=== PATIENT | male | born 1980 | race American Indian/Alaskan Native ===

== ENCOUNTER 2019-09-01 07:33 | Emergency (ER) | payer OTHER ==
--- NOTE | 2019-09-01 08:01 | EDPHYS ---
Physician Documentation [facility] Name: Lizzette Guillaume Age: 39 yrs Sex: Male : 1980 Arrival Date: 09/01/2019 Time: 07:36 Bed 5 Private MD: Shay Correa R ED Physician Suresh Rodrigez HPI: 08/31 07:54 This 39 yrs old Other Male presents to ER via Ambulatory with complaints of Chest Pain. pm1 07:54 The patient or guardian reports chest pain that is located primarily in the anterior pm1 aspect of left upper chest and mid-sternal area. Onset: last night. The pain radiates to the left arm, the left shoulder, Associated signs and symptoms: Pertinent positives: diaphoresis, dizziness, nausea, Pertinent negatives: abdominal pain, cough, palpitations, shortness of breath. The chest pain is described as a heaviness, squeezing. Duration: The patient or guardian reports a single episode, that is still ongoing. Modifying factors: The symptoms are alleviated by nothing. the symptoms are aggravated by nothing. Severity of pain: in the emergency department the pain is actually worse. The patient has not experienced similar symptoms in the past. 39 yo M with history of NIDDM and hyperlipidemia. Patient reports noncompliance with Crestor. Patient was playing drums with his friend last night and then experienced onset of sudden chest pain midsternal, left chest area that radiated to his left arm. At onset of chest pain, he was dizzy, diaphoretic, nauseous. Some improvement of chest pain throughout the night but the chest pain increased this AM after making some coffee this AM. Currently his pain is only in his left arm . Historical: - Allergies: 07:59 No Known Allergies; ss - PMHx: 07:59 Diabetes - IDDM; High Cholesterol; ss - PSHx: 07:59 None; ss - Immunization history:: Adult Immunizations up to date. - Social history:: Smoking status: Patient denies any tobacco usage or history of. ROS: 08:06 Constitutional: Negative for fever, chills, and weight loss. pm1 08:06 Neck: Negative for injury, pain, and swelling, Respiratory: Negative for shortness of breath, cough, wheezing, and pleuritic chest pain. 08:06 Back: Negative for injury and pain, : Negative for injury, bleeding, discharge, and swelling, MS/Extremity: Negative for injury and deformity, Skin: Negative for injury, rash, and discoloration, Neuro: Negative for headache, weakness, numbness, tingling, and seizure. 08:06 Cardiovascular: Positive for chest pain, Negative for edema, palpitations. 08:06 Abdomen/GI: Positive for nausea, Negative for vomiting, diarrhea, constipation. Exam: 08:06 Constitutional: This is a well developed, well nourished patient who is awake, alert, pm1 and in no acute distress. Head/Face: Normocephalic, atraumatic. Neck: Trachea midline, no thyromegaly or masses palpated, and no cervical lymphadenopathy. Supple, full range of motion without nuchal rigidity, or vertebral point tenderness. No Meningismus. Chest/axilla: Normal chest wall appearance and motion. Nontender with no deformity. No lesions are appreciated. Cardiovascular: Regular rate and rhythm with a normal S1 and S2. No gallops, murmurs, or rubs. Normal PMI, no JVD. No pulse deficits. Respiratory: Lungs have equal breath sounds bilaterally, clear to auscultation and percussion. No rales, rhonchi or wheezes noted. No increased work of breathing, no retractions or nasal flaring. Abdomen/GI: Soft, non-tender, with normal bowel sounds. No distension or tympany. No guarding or rebound. No evidence of tenderness throughout. Back: No spinal tenderness. No costovertebral tenderness. Full range of motion. Skin: Warm, dry with normal turgor. Normal color with no rashes, no lesions, and no evidence of cellulitis. MS/ Extremity: Pulses equal, no cyanosis. Neurovascular intact. Full, normal range of motion. 08:06 Neuro: Exam negative for acute changes, Orientation: is normal, Motor: is normal, moves all fours. Vital Signs: 07:54 BP 116 / 82; Pulse 73; Resp 16; Temp 97.1(TE); Pulse Ox 100% on R/A; Weight 63.5 kg; ss Height 5 ft. 5 in. (165.10 cm); Pain 3/10; 08:05 BP 107 / 80 LA; Pulse 68; Resp 18; Pulse Ox 100% on 2 lpm NC; em 08:08 BP 101 / 71 RA; Pulse 74; em 08:15 BP 118 / 87; Pulse 72; Resp 16; Pulse Ox 100% on 2 lpm NC; Pain 0/10; em 07:54 Body Mass Index 23.30 (63.50 kg, 165.10 cm) ss MDM: 07:38 Patient medically screened. [facility] 07:52 Physician consultation: Torsten Parada MD was called at 07:52, was contacted at 07:52, pm1 regarding consult, patient's condition, after a discussion of the case, a recommendation for transfer for higher level of care is made, No factory laborer available. 07:57 Data reviewed: vital signs. pm1 07:57 Data interpreted: Pulse oximetry: on room air is 100 %. Interpretation: normal. pm1 07:57 Counseling: I had a detailed discussion with the patient and/or guardian regarding: the pm1 historical points, exam findings, and any diagnostic results supporting the discharge/admit diagnosis, the need to transfer to another facility, for higher level of care. 08:06 Physician consultation: Rufino Ley was contacted at 08:06, regarding consult, pm1 patient's condition, and will see patient. 08:42 ED course: Occasional PVC now seen on monitor. Likely due reperfusion from medications pm1 given in the ER. Will give the patient magnesium. Life flight present to transfer the patient. 09:06 ED course: Lab results faxed and sent to the factory laborer and banking assistant. pm1 08/31 07:42 Order name: Basic Metabolic Panel; Complete Time: 09:01 pm08/31 07:42 Order name: CBC with Diff pm08/31 07:42 Order name: LFT's; Complete Time: 09:01 pm08/31 07:42 Order name: Magnesium; Complete Time: 09:01 pm08/31 07:42 Order name: NT PRO-BNP; Complete Time: 09:01 pm08/31 07:42 Order name: PT-INR; Complete Time: 08:40 pm08/31 07:42 Order name: Troponin (emerg Dept Use Only); Complete Time: 09:01 pm08/31 07:42 Order name: XRAY Chest (1 view); Complete Time: 08:26 pm08/31 07:42 Order name: Lipase; Complete Time: 09:01 pm1 08/31 08:01 Order name: Glucose, Ancillary Testing; Complete Time: 08:06 EDMS 08/31 08:32 Order name: LAB Add On pm1 08/31 08:33 Order name: PTT, Activated Partial Thromb; Complete Time: 08:40 EDMS 08/31 07:42 Order name: EKG; Complete Time: 07:43 pm1 08/31 07:42 Order name: Cardiac monitoring; Complete Time: 07:55 pm1 08/31 07:42 Order name: EKG - Nurse/Tech; Complete Time: 07:55 pm1 08/31 07:42 Order name: IV Saline Lock; Complete Time: 07:55 pm1 08/31 07:42 Order name: Labs collected and sent; Complete Time: 07:55 pm1 08/31 07:42 Order name: O2 Per Protocol; Complete Time: 07:55 pm1 08/31 07:42 Order name: O2 Sat Monitoring; Complete Time: 07:55 pm1 EC:00 Rate is 66 beats/min. Rhythm is regular, Normal Sinus Rhythm. T waves are Normal. ST pm1 Segment is elevated in leads II, III, aVF. Clinical impression: Inferior KS - acute. 08:06 Rate is 67 beats/min. Rhythm is regular, Normal Sinus Rhythm. ST Segment is elevated in pm1 leads II, III, aVF. Clinical impression: Inferior KS - acute. Administered Medications: 08:07 Drug: Aspirin Chewable Tablet 324 mg Route: PO; em 08:47 Follow up: Response: No adverse reaction em 08:09 Drug: NS 0.9% 1000 ml Route: IV; Rate: 1000 ml; Site: right forearm; em 08:46 Follow up: IV Status: Infusion continued upon transfer em 08:10 Drug: Heparin (KS-Bolus with thrombolytic) - HEParin 60 units/kg {Co-Signature: em ss (Jesus Harvey RN).} Route: IVP; Site: left antecubital; 08:47 Follow up: Response: No adverse reaction em 08:12 Drug: Heparin ([place] Drip) 12 units/kg/hr - (HEParin 19600 units, D5W 500 ml) ss {Co-Signature: em (Jesus Harvey RN).} Route: IV; Rate: calculated rate; Site: left antecubital; 08:46 Follow up: IV Status: Infusion continued upon transfer em 08:15 Drug: PlaVIX 300 mg Route: PO; em 08:46 Follow up: Response: No adverse reaction em 08:15 Drug: Tenecteplase 35 mg {Co-Signature: em (Jesus Harvey RN).} Route: IV; Rate: ss calculated rate; Site: left antecubital; 08:46 Follow up: Response: No adverse reaction; IV Status: Completed infusion; IV Intake: 7ml em 08:16 Drug: Pepcid 20 mg Route: IVP; Site: left antecubital; em 08:46 Follow up: Response: No adverse reaction em 08:35 Not Given (Duplicate Order): Pepcid 20 mg IVP once ss 08:45 Drug: Magnesium Sulfate 1 grams Route: IVPB; Infused Over: 1 hrs; Site: right forearm; em 08:47 Follow up: IV Status: Infusion continued upon transfer em 08:54 Not Given (Other Intervention Used): morphine 2 mg IVP once; (PAIN>8) RASS on ADMN: em Combtv4, Very Agttd3, Agttd2, Rstlss1, AlertClm0, Drwsy-1, LtSdtn-2, ModSdtn-3, DpSdtn-4, UnArsble-5 x2 08:54 Not Given (Other Intervention Used): Zofran (Ondansetron) 4 mg IVP once; over 2 minutes em Disposition: 09/01/19 08:00 Transfer ordered to [facility]. Diagnosis is ST Elevated KS. - Reason for transfer: Higher level of care. - Accepting physician is [facility] [place] - Rufino Ley MD. - Condition is Fair. - Problem is new. - Symptoms have improved. Addendum: 09/03/2019 20:15 Co-signature as Attending Physician, Suresh Rodrigez MD I agree with the assessment and c lema plan of care. Signatures: Dispatcher [employer] Suresh Stacy MD MD cha Munoz, Edgar, RN RN em Nichelle Lomeli RN RN ss Juaquin Howard, CONFIGURATOR CONFIGURATOR pm1 Jesus Harvey RN em Corrections: (The following items were deleted from the chart) 08/31 08:17 08:00 09/01/2019 08:00 Transfer ordered to [facility]. pm1 Diagnosis is ST Elevated KS. Reason for transfer: Higher level of care. Accepting physician is [facility] [place]. Condition is Fair. Problem is new. Symptoms have improved. pm1 08:56 08:17 09/01/2019 08:00 Transfer ordered to [facility]. em Diagnosis is ST Elevated KS. Reason for transfer: Higher level of care. Accepting physician is [facility] [place] - Rufino Ley MD. Condition is Fair. Problem is new. Symptoms have improved. pm1
--- NOTE | 2019-09-01 08:01 | ER ---
Nurse's Notes [facility] Name: Lizzette Guillaume Age: 39 yrs Sex: Male : 1980 Arrival Date: 09/01/2019 Time: 07:36 Bed 5 Private MD: Shay Correa R Diagnosis: ST Elevated AR Presentation: 08/31 07:36 Chief complaint: Patient states: Bilateral shoulder pain that radiates down L arm at ss times, comes and goes. Chest pain that began yesterday. Pt states, "now I just feel breathless and sometimes cold." Denies cough/fever. Coronavirus screen: Patient denies a cough. Patient reports shortness of breath or difficulty breathing. Patient denies measured and/or subjective temperature greater than 100.4F prior to today's visit. Patient denies travel on a cruise ship or to a country the [facility] currently lists as an affected area. Patient denies contact with known and/or suspected case of COVID-19. Ebola Screen: Patient denies exposure to infectious person. Patient denies travel to an Ebola-affected area in the 21 days before illness onset. Initial Sepsis Screen: Does the patient meet any 2 criteria? No. Patient's initial sepsis screen is negative. Does the patient have a suspected source of infection? No. Patient's initial sepsis screen is negative. Risk Assessment: Do you want to hurt yourself or someone else? Patient reports no desire to harm self or others. Onset of symptoms was August 2019. 07:36 Method Of Arrival: Ambulatory ss 07:36 Acuity: JOE 1 ss Historical: - Allergies: 07:59 No Known Allergies; ss - PMHx: 07:59 Diabetes - IDDM; High Cholesterol; ss - PSHx: 07:59 None; ss - Immunization history:: Adult Immunizations up to date. - Social history:: Smoking status: Patient denies any tobacco usage or history of. Screenin:50 Abuse screen: Denies threats or abuse. Nutritional screening: No deficits noted. em Tuberculosis screening: No symptoms or risk factors identified. Fall Risk None identified. Assessment: 07:50 General: Appears uncomfortable, ill, slender, well groomed, well developed, well em nourished, Behavior is cooperative. Pain: Complains of pain in anterior aspect of left upper chest Pain does not radiate. Pain began last night at 2100. Neuro: Level of Consciousness is awake, alert, obeys commands, Oriented to person, place, time, situation, Appropriate for age. Cardiovascular: Reports chest pain, nausea, shortness of breath, Capillary refill < 3 seconds Rhythm is. Respiratory: Airway is patent Respiratory effort is even, unlabored, Respiratory pattern is regular, symmetrical. GI: Abdomen is flat, Reports nausea, Patient currently denies vomiting. Derm: Skin is intact, Skin is clammy, Skin is normal, Skin temperature is cool. Musculoskeletal: Range of motion: intact in all extremities. 08:10 Reassessment: Patient appears in no apparent distress at this time. Patient is alert, em oriented x 3, equal unlabored respirations, skin warm/dry/pink. Patient states feeling better. Patient states symptoms have improved. 08:25 Reassessment: unable to give report at this time, process laboratory specialist had to get called in. em 08:45 Reassessment: Patient appears in no apparent distress at this time. Patient is alert, em oriented x 3, equal unlabored respirations, skin warm/dry/pink. report given to life flight Patient denies pain at this time. Patient states feeling better. 09:18 Reassessment: report given to AYDIN Vela at [facility]. em Vital Signs: 07:54 BP 116 / 82; Pulse 73; Resp 16; Temp 97.1(TE); Pulse Ox 100% on R/A; Weight 63.5 kg; ss Height 5 ft. 5 in. (165.10 cm); Pain 3/10; 08:05 BP 107 / 80 LA; Pulse 68; Resp 18; Pulse Ox 100% on 2 lpm NC; em 08:08 BP 101 / 71 RA; Pulse 74; em 08:15 BP 118 / 87; Pulse 72; Resp 16; Pulse Ox 100% on 2 lpm NC; Pain 0/10; em 07:54 Body Mass Index 23.30 (63.50 kg, 165.10 cm) ED Course: 07:36 Patient arrived in ED. mr 07:36 Shay Correa MD is Private Physician. mr 07:36 [facility] Howard [facility] pm1 07:37 Suresh Rodrigez MD is Attending Physician. pm1 07:50 Jesus Harvey, RN is Primary Nurse. em 07:50 Patient has correct armband on for positive identification. Placed in gown. Bed in low em position. Call light in reach. laborer petroleum refinery on. Pulse ox on. NIBP on. 07:52 Inserted saline lock: 20 gauge in left antecubital area, using aseptic technique. Blood ss collected. Patient maintains SpO2 saturation greater than 95% on room air. 07:54 Arm band placed on right wrist. ss 07:[address] Parada called and connected with Dr. Rodrigez for patient eb consultation. 07:[address] Rodrigez with Doreen from the [facility]. eb 07:58 Triage completed. ss 08:00 Inserted saline lock: 22 gauge in right forearm, using aseptic technique. em 08:04 XRAY Chest (1 view) In Process Unspecified. EDMS 08:[address] Ley the cable splicing technician monotypist for [facility] with Dr. Rodrigez for eb patient transfer consultation. 08:09 administrative approval given by Doreen Tavaerz Rn/ patient has been accepted to [facility] brick and blocker aid labor/ Dr. Rafal Ley has accepted the patient in transfer/ report to be called to [phone]. 08:10 [facility] called/ 25 min ETA. eb 08:56 No provider procedures requiring assistance completed. Patient transferred, IV remains em in place. Administered Medications: 08:07 Drug: Aspirin Chewable Tablet 324 mg Route: PO; em 08:47 Follow up: Response: No adverse reaction em 08:09 Drug: NS 0.9% 1000 ml Route: IV; Rate: 1000 ml; Site: right forearm; em 08:46 Follow up: IV Status: Infusion continued upon transfer em 08:10 Drug: Heparin (AR-Bolus with thrombolytic) - HEParin 60 units/kg {Co-Signature: em ss (Jesus Harvey RN).} Route: IVP; Site: left antecubital; 08:47 Follow up: Response: No adverse reaction em 08:12 Drug: Heparin ([place] Drip) 12 units/kg/hr - (HEParin 88689 units, D5W 500 ml) ss {Co-Signature: em (Jesus Harvey RN).} Route: IV; Rate: calculated rate; Site: left antecubital; 08:46 Follow up: IV Status: Infusion continued upon transfer em 08:15 Drug: PlaVIX 300 mg Route: PO; em 08:46 Follow up: Response: No adverse reaction em 08:15 Drug: Tenecteplase 35 mg {Co-Signature: em (Jesus Harvey RN).} Route: IV; Rate: ss calculated rate; Site: left antecubital; 08:46 Follow up: Response: No adverse reaction; IV Status: Completed infusion; IV Intake: 7ml em 08:16 Drug: Pepcid 20 mg Route: IVP; Site: left antecubital; em 08:46 Follow up: Response: No adverse reaction em 08:35 Not Given (Duplicate Order): Pepcid 20 mg IVP once ss 08:45 Drug: Magnesium Sulfate 1 grams Route: IVPB; Infused Over: 1 hrs; Site: right forearm; em 08:47 Follow up: IV Status: Infusion continued upon transfer em 08:54 Not Given (Other Intervention Used): morphine 2 mg IVP once; (PAIN>8) RASS on ADMN: em Combtv4, Very Agttd3, Agttd2, Rstlss1, AlertClm0, Drwsy-1, LtSdtn-2, ModSdtn-3, DpSdtn-4, UnArsble-5 x2 08:54 Not Given (Other Intervention Used): Zofran (Ondansetron) 4 mg IVP once; over 2 minutes em Intake: 08:46 IV: 7ml; Total: 7ml. em Outcome: 08:00 ER care complete, transfer ordered by MD. pm1 08:56 Transferred by helicopter to [facility], Transfer form completed. em X-rays sent w/ patient. 08:56 Condition: stable 08:56 Instructed on the need for transfer, Demonstrated understanding of instructions. 08:56 Patient left the ED. em Signatures: Dispatcher [employer] Hannah Alejandro Edgar, RN RN em Nichelle Lomeli RN RN ss Juaquin Howard, JUAN MANUEL BLOCKER AND POLISHER GOLD WHEEL pm1 Alisia Moore RN em
[2019-09-01] MEDS ORDERED: HEPARIN 5000 UNIT/ML 1 ML VIAL ONE (08:06)
[2019-09-01] MEDS ORDERED: CLOPIDOGREL 75 MG TABLET ONE (08:06)
[2019-09-01] MEDS ORDERED: ASPIRIN 81 MG CHEWABLE TABLET ONE (08:06)
[2019-09-01] MEDS ORDERED: NA CHLORIDE 0.9% 1,000 ML ONE (08:07)
[2019-09-01] MEDS ORDERED: FAMOTIDINE 20 MG/2 ML VIAL IV ONE (08:07)
[2019-09-01] MEDS ORDERED: HEPARIN/D5W 25,000 UNIT/500 ML BAG IV ONE (08:07)
[2019-09-01] MEDS ORDERED: TENECTEPLASE 50 MG/10 ML VIAL IV ONE (08:07)
--- NOTE | 2019-09-01 08:21 | RAD REPORT ---
EXAM DESCRIPTION: RAD - Chest Single View - 09/01/2019 8:04 am CLINICAL HISTORY: CHEST PAIN COMPARISON: None TECHNIQUE: AP portable chest image was obtained 09/01/2019 8:04 am . FINDINGS: Lung volumes are low. No peripheral mass or consolidation. No failure or volume overload. Heart and vasculature are normal. No measurable pleural effusion and no pneumothorax. No acute bony a bnormality seen. No acute aortic findings suspected. IMPRESSION: No acute cardiopulmonary process.
[2019-09-01 08:27] LABS: Protime INR 0.89
[2019-09-01 08:34] LABS: Absolute Lymphocytes (CBC) 3.5 K/uL (0.7-4.9); Basophils % 0.7 % (0-1.3); Hematocrit 48.6 % (39.6-49.0); Lymphocytes % 28.1 % (15.3-44.8); MPV 8.8 fL (7.6-11.3); RBC Red Blood Cell Count 5.81 M/uL (4.33-5.43)
[2019-09-01] MEDS ORDERED: MAGNESIUM SULFATE 1 gm IVPB 1 GM/100 ML BAG IV ONE (08:48)
[2019-09-01 08:56] LABS: ALT/SGPT 45 U/L (12-78); AST/SGOT 73 U/L (15-37); Albumin 3.8 g/dL (3.4-5.0); Alkaline Phosphatase 60 U/L (45-117); BUN Blood Urea Nitrogen 18 mg/dL (7-18); Bicarbonate 21 mmol/L (21-32); Bilirubin Direct < 0.1 mg/dL (0-0.2); Bilirubin Total 0.4 mg/dL (0.2-1.0); Glucose Level 349 mg/dL (74-106); Lipase 1492 U/L (73-393); Magnesium 2.2 mg/dL (1.8-2.4); NT PRO-BNP 66 pg/mL (<125); Potassium 4.1 mmol/L (3.5-5.1); Protein, Total 7.9 g/dL (6.4-8.2); Sodium Level 133 mmol/L (136-145)
[2019-09-01 08:58] LABS: Troponin (Emerg Dept Use Only) 5.42 ng/mL (0.0-0.045)
[2019-09-01 09:14] VITALS: TEMP 97.1; O2SAT 100
[2019-09-01 09:16] LABS: Blood Morphology Comment NOT SEEN (NOT SEEN); Platelet Estimate ADEQ
[2019-09-01 09:17] VITALS: BP 101/71
--- NOTE | 2019-09-01 12:17 | EKG ---
Test Date: 2019-09-01 Test Time: 08:05:33 Poultry Farm Worker: RAMA MEASUREMENT RESULTS: Intervals: Rate: 67 IL: 160 QRSD: 78 QT: 380 QTc: 401 [place]: P: 75 IL: 160 QRS: 53 T: 73 INTERPRETIVE STATEMENTS: Normal sinus rhythm with sinus arrhythmia ST elevation, consider inferior injury or acute infarct ACUTE IN Consider right ventricular involvement in acute inferior infarct Abnormal ECG No previous ECG available for comparison Electronically Signed On 09-01-19 12:17:37 CDT by Torsten Parada
--- NOTE | 2019-09-03 18:48 | EKG ---
Test Date: 2019-09-01 Test Time: 08:41:47 Police Reserves Commander: RAMA MEASUREMENT RESULTS: Intervals: Rate: 70 MT: 124 QRSD: 68 QT: 400 QTc: 432 [place]: P: 88 MT: 124 QRS: 46 T: 57 INTERPRETIVE STATEMENTS: Normal sinus rhythm Inferior infarct, possibly acute ACUTE NM Consider right ventricular involvement in acute inferior infarct Abnormal ECG Compared to ECG 09/01/2019 08:05:33 Sinus arrhythmia no longer present ST (T wave) deviation no longer present Myocardial infarct finding still present Electronically Signed On 09-03-19 18:44:43 CDT by Torsten Parada
== END 2019-09-01 08:56 | disposition short-term general hospital (02) ==
LOC: ER 07:33
DX: I21.3 ST elevation (STEMI) myocardial infarction of unspecified site (principal); E11.9 Type 2 diabetes mellitus without complications
CPT/HCPCS: 96365; 92977; 93005 ×2; 85025; 80048; 36415; 83735; 85610; 82947; 80076; 85730; 84484; 83690; 83880; 71045; 96375; 99285; J1644; J3101; J3475; J7030